=== PATIENT | female | born 1990 | race Two or more races ===

== ENCOUNTER 2023-08-26 10:43 | Inpatient (IN) | payer OTHER ==
[~2023-08-26] VITALS: Ht 162.6 cm; Wt 62.1 kg
[2023-08-26] MEDS ORDERED: NIFEDIPINE20 MG PO (12:46)
[2023-08-26 13:09] LABS: HEMATOCRIT 37.8 % (36.0-45.00); MEAN CELL VOLUME 87.4 fL (80.00-100.00); MEAN CORPUSCULAR HEMOGLOBIN 30.1 pg (27.00-32.0); MEAN CORPUSCULAR HGB CONC 34.5 g/dl (32.0-36.0); PLATELET COUNT 264 K/uL (150-450); RED BLOOD COUNT 4.32 M/uL (4.00-6.00); RED CELL DISTRIBUTION WIDTH 13.6 % (11.5-14.5)
[2023-08-26 14:05] LABS: ALBUMIN 2.9 gm/dL (3.4-5.0); BILIRUBIN TOTAL 0.5 mg/dL (0.3-1.2); CREATININE SERUM 0.47 mg/dL (0.55-1.02); GFR 152.61; GLOBULINA 4.4 G/DL (2.4-3.5); POTASSIUM 3.66 mEq/L (3.5-5.1); TOTAL PROTEIN 7.3 gm/dL (6.4-8.2)
[2023-08-26 14:10] LABS: INR < 0.93; PROTHROMBIN TIME 9.8 SECONDS (9.0-11.5)
[2023-08-26 14:15] LABS: PARTIAL THROMBOPLASTIN TIME 63.2 SECONDS (22.0-34.0)
[2023-08-26 21:11] LABS: COL EPI 92 SECONDS (82-175)
[2023-08-27 02:12] LABS: ABG pCO2 44.8 mmHg (35-45)
[2023-08-27 02:13] LABS: ABG PO2 29.5 mmHg (80-100); BASE EXCESS -4.9 mmol/l; BICARBONATE 21.6 mmol/l (23-25); SaO2 47.2 %; Tco2 22.9 mmol/l; o2 21 %
[2023-08-27 07:37] LABS: HEMATOCRIT 27.9 % (36.0-45.00); MEAN CELL VOLUME 84.9 fL (80.00-100.00); MEAN CORPUSCULAR HGB CONC 34.8 g/dl (32.0-36.0); PLATELET COUNT 229 K/uL (150-450); RED BLOOD COUNT 3.29 M/uL (4.00-6.00); RED CELL DISTRIBUTION WIDTH 13.7 % (11.5-14.5)
[2023-08-27 07:43] LABS: HEMOGLOBIN 9.7 g/dL (12.0-15.00); MEAN CORPUSCULAR HEMOGLOBIN 29.4 pg (27.00-32.0)
[2023-08-27 11:23] LABS: HEMATOCRIT 28.7 % (36.0-45.00); MEAN CELL VOLUME 85.8 fL (80.00-100.00); MEAN CORPUSCULAR HEMOGLOBIN 29.9 pg (27.00-32.0); MEAN CORPUSCULAR HGB CONC 34.9 g/dl (32.0-36.0); PLATELET COUNT 203 K/uL (150-450); RED BLOOD COUNT 3.34 M/uL (4.00-6.00); RED CELL DISTRIBUTION WIDTH 13.6 % (11.5-14.5)
[2023-08-28 08:49] LABS: INR < 0.93; PROTHROMBIN TIME 9.8 SECONDS (9.0-11.5)
[2023-08-28 08:57] LABS: HEMATOCRIT 30.2 % (36.0-45.00); HEMOGLOBIN 10.3 g/dL (12.0-15.00); MEAN CELL VOLUME 87.9 fL (80.00-100.00); MEAN CORPUSCULAR HGB CONC 34.1 g/dl (32.0-36.0); PLATELET COUNT 232 K/uL (150-450); RED BLOOD COUNT 3.44 M/uL (4.00-6.00); RED CELL DISTRIBUTION WIDTH 13.8 % (11.5-14.5)
[2023-08-28 08:58] LABS: PARTIAL THROMBOPLASTIN TIME 60.1 SECONDS (22.0-34.0)
[2023-08-29 07:29] LABS: HEMATOCRIT 32.6 % (36.0-45.00); HEMOGLOBIN 11.1 g/dL (12.0-15.00); MEAN CELL VOLUME 87.1 fL (80.00-100.00); MEAN CORPUSCULAR HEMOGLOBIN 29.8 pg (27.00-32.0); MEAN CORPUSCULAR HGB CONC 34.2 g/dl (32.0-36.0); PLATELET COUNT 277 K/uL (150-450); RED BLOOD COUNT 3.74 M/uL (4.00-6.00); RED CELL DISTRIBUTION WIDTH 14.2 % (11.5-14.5)
[2023-08-29] MEDS ORDERED: OXYC1TAB9 PO (08:00)
== END 2023-08-29 17:20 | disposition home or self-care (01) | DRG 786 ==
LOC: LDR 10:43 → OB/GYN 10:43 → EDBD 10:43 → O/R 14:53 → OB/GYN 17:31
PROVIDERS: Internal Medicine Hematology & Oncology; ADMIT Obstetrics & Gynecology Maternal & Fetal Medicine; ATTEND Obstetrics & Gynecology Maternal & Fetal Medicine
PROC: 4A1HXCZ Monitoring of Products of Conception, Cardiac Rate, External Approach (ICD-10-PCS; 2023-08-26)
PROC: 10D00Z1 Extraction of Products of Conception, Low, Open Approach (ICD-10-PCS; principal; 2023-08-27 07:00)
DX: O32.1XX0 Maternal care for breech presentation, not applicable or unspecified (principal); O34.33 Maternal care for cervical incompetence, third trimester; O99.12 Other diseases of the blood and blood-forming organs and certain disorders involving the immune mechanism complicating childbirth; D68.9 Coagulation defect, unspecified; O99.02 Anemia complicating childbirth; D50.0 Iron deficiency anemia secondary to blood loss (chronic); Z3A.37 37 weeks gestation of pregnancy; Z37.0 Single live birth; Z20.822 Contact with and (suspected) exposure to COVID-19